=== PATIENT | female | born 1965 | race Caucasian/White ===

== ENCOUNTER → 2018-02-06 09:14 | Outpatient (POV) | payer MEDICAID, SELFPAY ==
[2018-02-06 09:42] VITALS: BP 110/64; PULSE 95; RESP 18; O2SAT 99
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
== END ==
PROVIDERS: PCP Pediatrics; Visit Provider Clinical Nurse Specialist Family Health
DX: M51.16 Intervertebral disc disorders with radiculopathy, lumbar region (principal)
CPT/HCPCS: 99202

== ENCOUNTER → 2018-03-27 08:42 | Outpatient (POV) | payer MEDICAID, SELFPAY ==
[2018-03-27 08:55] VITALS: BP 112/71; PULSE 94; RESP 18; O2SAT 99; BMI 32.8
--- NOTE | 2018-03-27 09:06 | P.CONS_ITS ---
[facility] Pain Management SOAP Note Subjective:: A pleasant 52-year-old white female who presents today for follow-up after her first lumbar epidural steroid action with us. She is doing extremely well she states she is got a 1 out of 10 in her previous nerve pain she does do some arthritic pain rating her pain a 4 out of 10. We did discuss tumor rec along with CBD oil and Tylenol use. Patient would like to move forward with another injection in a few weeks. Otherwise she is doing well patient is not on any anticoagulation. Patient continuing a home stretching program. ROS General: no recent weight change, no fever, no sleep disturbances Respiratory: no cough, no shortness of air, no recurring pulmonary infections Cardiovascular/Peripheral Vascular: No chest pain, No palpitations, no edema, no shortness of breath. Gastrointestinal: no incontinence, normal bowel movements reported Genitourinary: no incontinence Musculoskeletal: Back pain leg pain Psychiatric: normal mood/ affect Neurological: [denies weakness in extremities], [denies balance issues] Objective:: Physical Exam General: Alert and oriented x3, no acute distress, pleasant and cooperative, [on room air] Lungs: Resps E/U, Symmetrical chest expansion, Eyes: PERRL Musculoskeletal: Flexion and extension of lumbar spine somewhat guarded secondary to pain, deep tendon reflexes normal, strength in upper and lower extremities [5/5], slightly antalgic gait noted Neurological: speech clear, 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 Dr. Sanchez has reviewed this note and agrees with this plan of care. This note was dictated using voice recognition software and may contain errors or omissions
== END ==
PROVIDERS: PCP Pediatrics; Visit Provider Clinical Nurse Specialist Family Health
DX: M51.16 Intervertebral disc disorders with radiculopathy, lumbar region (principal)
CPT/HCPCS: 99213

== ENCOUNTER → 2021-11-24 11:04 | Outpatient (POV) | payer MEDICAID, SELFPAY ==
[2021-11-24 11:15] VITALS: BP 134/73; PULSE 83; RESP 20; O2SAT 96; BMI 30.1
--- NOTE | 2021-11-24 12:33 | EXP.PAIN.OV ---
HPI Data of Consult Patient: new to practice Consult date: 11/24/21 Requesting Physician: London Steward CRNA Primary Care Provider: Anuj Leone Consult Narrative Reason for consult: Chronic right shoulder pain. Right shoulder osteoarthritis. Left trochant History of present illness: Ms. Burr is a 56 year old female who comes our clinic today for initial consultation regarding chronic right shoulder pain. Patient has been under the care of Dr. Gaspar for quite some time regarding chronic right shoulder pain. She has been advised for right shoulder replacement. However, patient works full-time and is not wanting to be off work at this time. Patient states intra-articular cortisone has been helping her for 2 to 3 months. She is requesting we continue with 3 or 4 intra-articular cortisone shots per year in the right shoulder. Patient also complaining of left trochanteric bursitis. She has had injection in the left trochanteric bursa with significant improvements in the past. However, patient is interested in focusing on the shoulder as primary. Patient does take Tylenol 3 as needed. This comes from her PCP. Also, patient did see us in this clinic in 2019 for low back pain with bilateral hip and leg radicular symptoms. She received lumbar epidural steroid injection in 2019 with significant improvement terms of her low back pain is about a hip and leg pain. CC: London Steward CRNA [facility] Medical History (Updated 11/24/21 @ 12:37 by London Steward CRNA) GERD (gastroesophageal reflux disease) H/O: HTN (hypertension) History of high cholesterol Osteoarthritis Surgical History (Updated 11/24/21 @ 11:31 by Alessia Colindres RN) H/O arthroscopy of right knee H/O lumbar discectomy Family History (Updated 11/24/21 @ 11:31 by Alessia Colindres RN) Other No significant family history Social History (Updated 11/24/21 @ 11:31 by Alessia Colindres RN) Smoking Status: Never smoker alcohol intake: never substance use type: denies use current occupational status: other Travel in the last 8 weeks: None household members: spouse housing: house caffeine: No Meds Home Medications and Allergies Home Medications Medication Instructions Recorded Confirmed Type metoprolol succinate 50 mg 50 mg PO DAILY Hypertension 02/06/18 11/24/21 History tablet,extended release 24 hr amitriptyline 75 mg tablet 75 mg PO HS NERVE PAIN 11/24/21 11/24/21 History atorvastatin 80 mg tablet 80 mg PO HS Cholesterol 11/24/21 11/24/21 History ferrous sulfate 325 mg (65 mg 1 mg PO DAILY Supplement 11/24/21 11/24/21 History iron) tablet (FeroSul) gabapentin 800 mg tablet 800 mg PO BID NERVE PAIN 11/24/21 11/24/21 History hydrocodone 7.5 mg-acetaminophen 1 tab PO TIDP PRN Pain 11/24/21 11/24/21 History 325 mg tablet metaxalone 800 mg tablet 800 mg PO DAILY SPASM 11/24/21 11/24/21 History sulindac 150 mg tablet 150 mg PO DAILY NSAID 11/24/21 11/24/21 History New Prescriptions to Start Prescriptions: Allergies Allergy/AdvReac Type Severity Reaction Status Date / Time codeine Allergy Swelling Verified 11/24/21 11:19 of Lip/Tongue/Throat acetaminophen [From Lortab] AdvReac Weakness Verified 11/24/21 11:19 cyclobenzaprine AdvReac Hallucinati Verified 11/24/21 11:19 [From Flexeril] ng diclofenac [From Voltaren] AdvReac Verified 11/24/21 11:19 hydrocodone [From Lortab] AdvReac Weakness Verified 11/24/21 11:19 ibuprofen AdvReac Verified 11/24/21 11:19 Penicillins AdvReac Unknown Verified 11/24/21 11:19 allergy reaction tramadol [From Ultracet] AdvReac Nausea Verified 11/24/21 11:19 Objective Vital signs: Pulse Resp BP Pulse Ox 83 20 134/73 96 11/24/21 11:15 11/24/21 11:15 11/24/21 11:15 11/24/21 11:15 Narrative: Patient is awake alert [place] x3. In no acute distress. Flexion-extension cervical lumbar spine normal. Deep tendon reflexes upper and lo
== END ==
PROVIDERS: PCP Pediatrics; Visit Provider Nurse Anesthetist, Certified Registered
DX: M25.511 Pain in right shoulder (principal); G89.29 Other chronic pain; M70.62 Trochanteric bursitis, left hip
CPT/HCPCS: 99202; G0463

== ENCOUNTER 2021-12-08 09:06 | Day surgery (SDC) | payer MEDICAID, SELFPAY ==
[2021-12-08 09:11] VITALS: BP 107/55; PULSE 48; RESP 16; TEMP 36.1; O2SAT 97; BMI 30.1
[2021-12-08 09:34] VITALS: BP 115/67; PULSE 90; RESP 18; O2SAT 99
[2021-12-08 09:35] VITALS: BP 114/57; PULSE 90; RESP 18; O2SAT 99
[2021-12-08 09:40] VITALS: BP 114/52; PULSE 87; RESP 20; O2SAT 98
--- NOTE | 2021-12-08 09:41 | EXP.PAIN.PRO ---
Procedure Date: 12/08/21 Time: 09:41 Anesthesiologist:: London Steward CRNA Complications:: None Pre-procedure Diagnosis:: Osteoarthritis right shoulder Post-procedure Diagnosis:: Same. Indications for Procedure:: Very pleasant 56-year-old female that comes our injection clinic today for right intra-articular shoulder injection. Patient's been under the care of orthopedics for quite some time. She has been advised to have right shoulder replacement. However, patient works full-time and is not wanting to undergo surgery at this time. Procedure Details:: Details of the procedure were explained to the patient. The patient taken the procedure room placed in the sitting position. The area over the right posterior shoulder was cleaned using chlorhexidine as a cleansing solution. Using a 22-gauge inch and a half needle the right shoulder joint was accessed from the posterior approach with ease. After negative aspiration 4 cc of 0.25% Marcaine +3 cc 1% lidocaine and 80 mg of Depo-Medrol was injected. Patient tolerated procedure without difficulty. There are no complications. Plan and Disposition:: Patient was discharged without incident.
== END 2021-12-08 09:41 | disposition home or self-care (01) ==
PROVIDERS: PCP Pediatrics; Visit Provider Nurse Anesthetist, Certified Registered
DX: M19.011 Primary osteoarthritis, right shoulder (principal)
CPT/HCPCS: 20610; J1040

== ENCOUNTER → 2021-12-22 11:18 | Outpatient (POV) | payer MEDICAID, SELFPAY ==
[2021-12-22 11:31] VITALS: BP 126/67; PULSE 106; RESP 18; TEMP 37.2; O2SAT 99; BMI 274.4
--- NOTE | 2021-12-22 11:49 | EXP.PAIN.SOA ---
[facility] Pain Management SOAP Note Subjective:: Patient is a pleasant 56-year-old female who presents today for follow-up of right shoulder intra-articular injection on 12/08/2021. We are currently treating the patient for chronic pain right shoulder, left hip greater trochanteric bursitis. Today the patient states she has had at least 50% improvement in her right shoulder following this injection and feels like it is still helping. Today she rates her pain a 5 out of 10. She states her pain is typically in her bilateral shoulders. Patient states she did see Dr. Carey this morning and did get a left shoulder injection. 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 Patient is currently managed with gabapentin 800 mg 3 times a day by Dr. Anuj Leone's office. Patient denies any side effects from this medication. She states this medication does adequately help manage her pain. She is also prescribed Tylenol 3 as needed by Jeremiah Murray. Patient was seen in our clinic in 2019 for low back pain with bilateral hip and leg radicular symptoms where she was given a lumbar epidural steroid injection which provided significant improvement of her symptoms. Patient's John is [id number]. It is been reviewed and appropriate. Review of Systems: General: No recent weight changes, no fever, no sleep disturbances Respiratory: No cough, no shortness of air, no recurring pulmonary infections Cardiovascular/peripheral vascular: No chest pain, no palpitations, no edema, no shortness of breath Gastrointestinal: No new onset incontinence, normal bowel movements reported Genitourinary: No new onset incontinence Musculoskeletal: Bilateral shoulder pain Psychiatric: [Normal mood/affect] Neurological: [Denies weakness in extremities], [denies balance issues] Objective:: Physical Exam: General: Alert and oriented x3, no acute distress, pleasant and cooperative Lungs: Respirations even and unlabored, symmetrical chest expansion Eyes: PERRL Musculoskeletal: Flexion and extension of cervical [spine] somewhat guarded secondary to pain, [antalgic gait noted] Neurological: Speech clear, no gross sensory deficit Assessment:: Chronic pain right shoulder, left hip greater trochanteric bursitis, low back pain with lumbar radiculopathy Plan:: Patient has had significant improvement of her pain symptoms in her right shoulder following her last intra-articular injection. Patient does not need any additional injective therapy at today's visit. I will order the patient a compounding cream and we will follow-up with her in office in 1 month for reevaluation of symptoms and follow-up. Patient has been instructed to contact the clinic with any concerns before the next appointment. Dr. Sanchez has reviewed this note and agrees with this plan of care. This note was dictated using voice recognition software and make contain errors or omissions. [facility] Medical History (Updated 11/24/21 @ 12:37 by London Steward CRNA) GERD (gastroesophageal reflux disease) H/O: HTN (hypertension) History of high cholesterol Osteoarthritis Surgical History (Updated 11/24/21 @ 11:31 by Alessia Colindres RN) H/O arthroscopy of right knee H/O lumbar discectomy Family History (Updated 11/24/21 @ 11:31 by Alessia Colindres RN) Other No significant family history Social History (Updated 12/08/21 @ 09:23 by Brittany Bro RN) Smoking Status: Never smoker alcohol intake: never substance use type: denies use current occupational status: other Travel in the last 8 weeks: None household members: spouse housing: house caffeine: No
== END ==
PROVIDERS: PCP Pediatrics; Visit Provider Nurse Practitioner Family
DX: M54.16 Radiculopathy, lumbar region (principal); M25.511 Pain in right shoulder; G89.29 Other chronic pain; M70.62 Trochanteric bursitis, left hip; Z79.899 Other long term (current) drug therapy
CPT/HCPCS: 99212; G0463